=== PATIENT | female | born 1995 | race Caucasian/White ===

== ENCOUNTER → 2022-10-11 12:42 | Outpatient (CLI) | payer BC, SELFPAY ==
--- NOTE | ~2022-10-11 | US_ITS ---
EXAMINATION: US OB transvaginal DATE: 10/11/2022 13:12 INDICATION: Indeterminate dating of first trimester . TECHNIQUE: Real-time pelvic ultrasound utilizing transvaginal probe was performed. The interpreting r adiologist was not present for the study. COMPARISON: None. FINDINGS: The uterus measures 7.0 x 3.8 x 4.6 cm. There is an intrauterine gestational sac. A yolk sac and fet al pole are identified. The crown rump length measures 5 mm, which correlates with an estimated gesta tional age of 6 weeks and 1 days. heart motion is identified measuring 105 beats per minute (bp m) by M-mode Doppler. The right ovary measures 2.5 x 2.0 x 2.1 cm. The left ovary measures 3.6-2 0.2 x 1.9 cm. Mass or flui d is identified in both ovaries on color Doppler. There is no free fluid in the pelvis. IMPRESSION: 1. Single living fetus with heart rate of 105 bpm. 2. Gestational age by ultrasound of 6 weeks 1 day(s) +/- 4 day(s) with ultrasound estimated date of delivery (JANET) of 06/05/2023. Reviewed, dictated and finalized at location A. UME [employer]ER IMPRESSION: 1. Single living fetus with heart rate of 105 bpm. 2. Gestational age by ultrasound of 6 weeks 1 day(s) +/- 4 day(s) with ultraso und estimated date of delivery (JANET) of 06/05/2023.
== END ==
PROVIDERS: PCP Obstetrics & Gynecology Gynecology; Visit Provider Obstetrics & Gynecology Gynecology
DX: Z36.87 Encounter for antenatal screening for uncertain dates (principal); Z3A.01 Less than 8 weeks gestation of pregnancy
CPT/HCPCS: 76817

== ENCOUNTER → 2022-10-31 13:02 | Outpatient (CLI) | payer BC, SELFPAY ==
--- NOTE | ~2022-10-31 | US_ITS ---
Pelvic ultrasound. Clinical History: First trimester , evaluate for viability Technique: Realtime transabdominal and transvaginal scanning of the pelvis was performed. Color flow Doppler and Doppler spectral analysis were performed. Findings: The uterus is anteverted, and contains an intrauterine gestation. pole and yolk sac a re present. Godwin-rump length of 2.4 cm corresponds to an estimated gestational age of 9 weeks 0 days . heart rate is 165 bpm. No evidence for subchronic hemorrhage. Cervix closed. The right ovary measures 2.6 x 1.5 x 2.0 cm. No significant right ovarian or adnexal mass is seen. The left ovary measures 1.9 x 3.0 x 1.7 cm. No significant left ovarian or adnexal mass is seen. There is no evidence of free fluid in the cul de sac. Impression: Live intrauterine gestation, with estimated gestational age of 9 weeks 0 days. heart rate is 16 5 bpm. JANET is 06/05/2023. Reviewed, dictated and finalized at location . Impression: Live intrauterine gestation, with estimated gestational age of 9 weeks 0 days. heart rate is 165 bpm. JANET is 06/05/2023.
== END ==
PROVIDERS: PCP Obstetrics & Gynecology Gynecology; Visit Provider Obstetrics & Gynecology Gynecology
DX: O36.80X0 Pregnancy with inconclusive fetal viability, not applicable or unspecified (principal); Z3A.09 9 weeks gestation of pregnancy
CPT/HCPCS: 76801

== ENCOUNTER → 2023-01-09 14:26 | Outpatient (CLI) | payer BC, SELFPAY ==
--- NOTE | ~2023-01-09 | US_ITS ---
EXAMINATION: US OB /maternal detail DATE: 01/09/2023 14:51 INDICATION: Second trimester anatomic survey TECHNIQUE: Real-time ultrasound of the pelvis was performed. COMPARISON: None. FINDINGS: There is a single living fetus in vertex presentation. The placenta is anterior and 5.3 cm from the i nternal cervical os. The cervical length is 3.9 cm. heart rate is 138 beats per minute (bpm). F etal cardiac activity and movement are noted. The amniotic fluid index is subjectively normal. The following anatomy was identified as normal: 4 chamber heart 3 vessel cord cord insertion kidneys urinary bladder stomach spine diaphragm ventricles cisterna magna cerebellum The following biometric data were obtained: Biparietal diameter (BPD): 4.7 cm; head circumference (HC): 17.7 cm; abdominal circumference (AC): 14 .3 cm; femur length (FL): 3.1 cm. These measurements are concordant. Estimated weight is 305 g +/- 45 g, which correlates with the 83rd percentile when 06/05/2023 is used as estimated date of delivery. As single measurements, these parameters are each equal to the following estimated gestational ages w ith ranges of +/- 2 standard deviations: BPD: 20 weeks 2 days ( 18 weeks 4 days - 22 weeks 0 days). HC: 20 weeks 1 days ( 18 weeks 5 days - 21 weeks 5 days). AC: 19 weeks 5 days ( 17 weeks 4 days - 21 weeks 5 days). FL: 19 weeks 3 days ( 17 weeks 5 days - 21 weeks 2 days). estimated gestational age based solely on measurements from this exam is 19 weeks 6 days +/- 1 weeks 3 days. IMPRESSION: 1. Single living fetus in vertex presentation. 2. Estimated weight is 305 g +/- 45 g, which correlates with the 83rd percentile when 06/05/2023 is used as estimated date of delivery. Reviewed, dictated and finalized at location F. IMPRESSION: 1. Single living fetus in vertex presentation. 2. Estimated weight is 305 g +/- 45 g, which correlates with the 83rd per centile when 06/05/2023 is used as estimated date of delivery.
== END ==
PROVIDERS: PCP Advanced Practice Midwife; Visit Provider Advanced Practice Midwife
DX: Z36.9 Encounter for antenatal screening, unspecified (principal); Z3A.19 19 weeks gestation of pregnancy
CPT/HCPCS: 76805

== ENCOUNTER 2023-01-21 13:56 | Outpatient (CLI) | payer BC, SELFPAY ==
[2023-01-21 14:19] LABS: Basophils Percent Auto 0.2 % (0.2-1.2); Eosinophils Percent Auto 0.3 % (0-4.4); Hematocrit 31.7 % (37.0-47.0); Hemoglobin 10.9 g/dL (12.0-15.0); Immature Granulocyte Absolute 0.07 K/mm3 (0.00-0.031); Immature Granulocyte Percent A 0.6 % (0-0.5); Lymphocytes Absolute Auto 1.15 K/mm3 (0.9-3.2); Lymphocytes Percent Auto 10.1 % (18.3-44.2); Mean Corpuscular HGB Conc 34.4 g/dl (32-36); Mean Corpuscular Hemoglobin 31.7 pg (26-34); Mean Corpuscular Volume 92.2 fl (80-100); Mean Platelet Volume 8.6 fl (7.4-10.4); Monocytes Absolute Auto 0.6 K/mm3 (0.1-0.6); Monocytes Percent Auto 5.3 % (2.6-8.5); Neutrophils Absolute Auto 9.5 K/mm3 (1.3-6.7); Neutrophils Percent Auto 83.5 % (45.5-73.1); Platelet Count Result 235 k/mm3 (150-375); Red Blood Count 3.44 M/mm3 (4.2-5.4); Red Cell Distribution Width 13.1 % (11.5-14.5); White Blood Count 11.4 K/mm3 (4.5-10.0)
[2023-01-21 15:00] LABS: Iron 151 ug/dL (37-170)
[2023-01-21 15:09] LABS: Alanine Aminotransferase 150 U/L (6-35); Albumin Level 4.4 g/dL (3.5-5.1); Alkaline Phosphatase 52 U/L (38-126); Anion Gap 6 mmol/L (8-16); Aspartate Amino Transferase 113 U/L (14-36); Bilirubin,Total 0.2 mg/dL (0.2-1.3); Blood Urea Nitrogen 11 mg/dL (7-17); Calcium 9.1 mg/dL (8.4-10.2); Carbon Dioxide 22 mmol/L (22-30); Chloride 105 mmol/L (98-107); Estimated Glomerular Filt Rate > 60; Glucose 87 mg/dL (65-110); Potassium 4.2 mmol/L (3.4-5.0); Sodium 133 mmol/L (137-145)
[2023-01-21 15:12] LABS: Percent Iron Saturation 50 % (20-50)
== END 2023-01-21 13:57 | disposition home or self-care (01) ==
PROVIDERS: PCP Advanced Practice Midwife; Visit Provider Internal Medicine Hematology & Oncology
DX: R79.89 Other specified abnormal findings of blood chemistry (principal)
CPT/HCPCS: 36415; 80053; 82728; 83540; 83550; 85025

== ENCOUNTER 2023-01-24 08:28 | Outpatient (CLI) | payer BC, SELFPAY ==
[2023-01-24 09:07] LABS: Alanine Aminotransferase 110 U/L (6-35); Albumin Level 4.4 g/dL (3.5-5.1); Alkaline Phosphatase 53 U/L (38-126); Anion Gap 7 mmol/L (8-16); Aspartate Amino Transferase 68 U/L (14-36); Bilirubin,Total 0.3 mg/dL (0.2-1.3); Blood Urea Nitrogen 11 mg/dL (7-17); Carbon Dioxide 21 mmol/L (22-30); Chloride 108 mmol/L (98-107); Estimated Glomerular Filt Rate > 60; Glucose 70 mg/dL (65-110); Potassium 3.5 mmol/L (3.4-5.0); Sodium 136 mmol/L (137-145)
[2023-01-24 10:45] LABS: Hepatitis B Surface Antigen Negative (Negative)
[2023-01-24 10:54] LABS: HAV RESULT Negative (Negative); Hepatitis B Core IgM Result Negative (Negative)
[2023-01-24 11:02] LABS: Hepatitis C Virus Antibody Negative (Negative)
== END 2023-01-24 08:29 | disposition home or self-care (01) ==
LOC: ANHLAB 08:30
PROVIDERS: PCP Advanced Practice Midwife; Visit Provider Obstetrics & Gynecology Gynecology
DX: R74.01 Elevation of levels of liver transaminase levels (principal)
CPT/HCPCS: 36415; 80053; 80074

== ENCOUNTER 2023-02-18 09:35 | Outpatient (CLI) | payer BC, SELFPAY ==
[2023-02-18 12:48] LABS: Alanine Aminotransferase 34 U/L (6-35); Albumin Level 4.3 g/dL (3.5-5.1); Alkaline Phosphatase 57 U/L (38-126); Anion Gap 6 mmol/L (8-16); Aspartate Amino Transferase 36 U/L (14-36); Bilirubin,Total 0.2 mg/dL (0.2-1.3); Blood Urea Nitrogen 9 mg/dL (7-17); Calcium 9.2 mg/dL (8.4-10.2); Carbon Dioxide 23 mmol/L (22-30); Chloride 106 mmol/L (98-107); Estimated Glomerular Filt Rate > 60; Glucose 86 mg/dL (65-110); Potassium 4.1 mmol/L (3.4-5.0); Sodium 135 mmol/L (137-145)
== END 2023-02-18 09:36 | disposition home or self-care (01) ==
LOC: ANHLAB 09:40
PROVIDERS: PCP Advanced Practice Midwife; Visit Provider Obstetrics & Gynecology Gynecology
DX: R74.8 Abnormal levels of other serum enzymes (principal)
CPT/HCPCS: 36415; 80053

== ENCOUNTER 2023-03-17 10:29 | Outpatient (CLI) | payer OTHER, SELFPAY ==
[2023-03-17 11:21] LABS: Basophils Percent Auto 0.2 % (0.2-1.2); Eosinophils Percent Auto 0.3 % (0-4.4); Hematocrit 36.6 % (37.0-47.0); Hemoglobin 12.3 g/dL (12.0-15.0); Immature Granulocyte Absolute 0.08 K/mm3 (0.00-0.031); Immature Granulocyte Percent A 0.6 % (0-0.5); Lymphocytes Percent Auto 14.9 % (18.3-44.2); Mean Corpuscular HGB Conc 33.6 g/dl (32-36); Mean Corpuscular Hemoglobin 31.1 pg (26-34); Mean Corpuscular Volume 92.4 fl (80-100); Mean Platelet Volume 9.1 fl (7.4-10.4); Monocytes Absolute Auto 0.7 K/mm3 (0.1-0.6); Monocytes Percent Auto 5.4 % (2.6-8.5); Neutrophils Percent Auto 78.6 % (45.5-73.1); Platelet Count Result 259 k/mm3 (150-375); Red Blood Count 3.96 M/mm3 (4.2-5.4); Red Cell Distribution Width 12.1 % (11.5-14.5); White Blood Count 12.7 K/mm3 (4.5-10.0)
[2023-03-17 12:05] LABS: HIV 1/2 Ab P24 Ag Result Negative (Negative)
== END 2023-03-17 10:30 | disposition home or self-care (01) ==
LOC: ANHLAB 10:30
PROVIDERS: PCP Advanced Practice Midwife; Visit Provider Obstetrics & Gynecology
DX: Z34.90 Encounter for supervision of normal pregnancy, unspecified, unspecified trimester (principal); Z3A.00 Weeks of gestation of pregnancy not specified
CPT/HCPCS: 36415; 85025; 86703; G0432

== ENCOUNTER 2023-03-20 09:41 | Outpatient (RCR) | payer OTHER, SELFPAY ==
[2023-03-20] MEDS: RHO(D) IMMUNE GLOBULIN 300 MCG/2 ML SYRINGE IM (12:55)
== END 2023-06-16 23:59 | disposition home or self-care (01) ==
LOC: ANHOBOP 09:41
PROVIDERS: Visit Provider Obstetrics & Gynecology
DX: Z29.13 Encounter for prophylactic Rho(D) immune globulin (principal); O36.0990 Maternal care for other rhesus isoimmunization, unspecified trimester, not applicable or unspecified; Z3A.00 Weeks of gestation of pregnancy not specified
CPT/HCPCS: 36415; 85461; 86850; 86900; 86901; 90384; 96372; J2790

== ENCOUNTER 2023-05-30 11:33 | Observation (INO) | payer OTHER, SELFPAY ==
--- NOTE | 2023-06-03 11:01 | PM.OBTRLD ---
OB - Triage/Final Diagnosis Visit Information Date of evaluation: 05/30/23 Reason for evaluation: threatened labor Comments/Additional reasons for admission: I have assessed the risk for this patient, Mercy Ureña, and determined that she would benefit from observation care.
== END 2023-05-30 13:30 | disposition home or self-care (01) ==
PROVIDERS: Admitting Provider Student in an Organized Health Care Education/Training Program; Visit Provider Student in an Organized Health Care Education/Training Program
DX: O47.1 False labor at or after 37 completed weeks of gestation (principal); Z3A.38 38 weeks gestation of pregnancy
CPT/HCPCS: G0378; G0379

== ENCOUNTER 2023-06-05 17:28 | Outpatient (CLI) | payer OTHER, SELFPAY ==
[2023-06-05 18:13] LABS: Alanine Aminotransferase 73 U/L (6-35); Albumin Level 4.2 g/dL (3.5-5.1); Alkaline Phosphatase 235 U/L (38-126); Anion Gap 10 mmol/L (8-16); Aspartate Amino Transferase 61 U/L (14-36); Bilirubin,Total 0.6 mg/dL (0.2-1.3); Blood Urea Nitrogen 13 mg/dL (7-17); Calcium 9.8 mg/dL (8.4-10.2); Carbon Dioxide 19 mmol/L (22-30); Chloride 103 mmol/L (98-107); Estimated Glomerular Filt Rate > 60; Glucose 101 mg/dL (65-110); Potassium 3.6 mmol/L (3.4-5.0); Sodium 132 mmol/L (137-145)
[2023-06-12 20:39] LABS: Chenodeoxycholic Acid 8.7 umol/L (< OR = 3.9); Cholic Acid 22.7 umol/L (< OR = 2.8); Deoxycholic Acid 1.8 umol/L (< OR = 2.3); Total Bile Acids 33.2 umol/L (< OR = 8.3)
== END 2023-06-05 17:29 | disposition home or self-care (01) ==
LOC: ANHLAB 17:29
PROVIDERS: Visit Provider Obstetrics & Gynecology
DX: Z34.93 Encounter for supervision of normal pregnancy, unspecified, third trimester (principal); L29.9 Pruritus, unspecified; Z3A.00 Weeks of gestation of pregnancy not specified
CPT/HCPCS: 36415; 80053; 82542

== ENCOUNTER 2023-06-09 06:56 | Inpatient (IN) | payer OTHER, SELFPAY ==
[2023-06-09] VITALS (130 sets, daily range): BP systolic 90–176; BP diastolic 45–156; PULSE 54–272; RESP 16; TEMP 36.6–37.3; O2SAT 80–100; BMI 25.4
--- NOTE | 2023-06-09 07:38 | PM.IMHP ---
H&P: HPI History of Present Illness Date/Time: 06/09/23 07:38 Chief Complaint: leaking Narrative: Mercy is a 28yo @ 40.1wks who presented to L&D w/ complaints of leakage of clear fluid since 0500. She is having contractions. No vb. Feeling good movement. She has had regular care. Her is complicated by: - Hemochromatosis with h/o mildly elevated liver enzymes - Rh neg s/p rhogam - Cholestasis w/u pending Review of Systems Constitutional: Constitutional: Denies chills, Denies fever(s) and Denies headache(s) Eyes: Eyes: Denies change in vision ENT: Denies headache(s) Cardiovascular: Cardiovascular: Denies chest pain and Denies dyspnea Respiratory: Respiratory: Denies dyspnea Genitourinary: Genitourinary: Denies abnormal vaginal bleeding and Reports vaginal discharge Integumentary/Breasts: Skin/Breast: Reports pruritus Neurologic: Denies headache(s) Psychiatric: Psychiatric: Denies anxiety and Denies depression [facility] Past Medical History Medical History Hemochromatosis current DX Miscarriage Family History Family History Mother Hemochromatosis Thyroid disease Grandparent Hemochromatosis Father Hemochromatosis Social History Social History Smoking status: Never smoker Alcohol intake: never Substance use: never Substance use type: does not use Lack of Transportation: No Lack of Food: Never True Current Housing: I Have Housing Concerned About Future Housing: No Difficulty Paying Gas/Electric Bills: No Difficulty Paying for Meds: No Currently Unemployed: No Education: Bachelor's Degree Difficulty w/ Childcare or Family Care: No Living arrangements: with family Occupation/Education: occupation Additional occupation/education comments: self empolyed Gender identity (if verbalized by the patient): Female Sexual Orientation (if Verbalized by the Patient): Straight or Heterosexual Spiritual care concerns: No Meds Home Medications and Allergies Home Medications Medication Instructions Recorded Confirmed Type cholecalciferol (vitamin D3) 10 10 mcg PO DAILY 02/25/23 06/04/23 History mcg (400 unit) tablet vits 75-iron 28 mg-folic 1 pkg PO DAILY 02/25/23 06/04/23 History acid 800 mcg-omega-3 oral combo pack (One A Day Women's DHA) Allergies Allergy/AdvReac Type Severity Reaction Status Date / Time Penicillins Allergy Severe Hives Verified 06/04/23 09:49 shellfish derived Allergy Intermediate Hives Verified 06/04/23 09:49 Exam Const: General: cooperative, healthy appearing, no acute distress and obese Nutritional Appearance: obese Orientation/consciousness: patient oriented x3 Resp: Effort & Inspection: normal respiratory effort Cardio: Rate: regular rate GI: GI Palp: No abdominal tenderness : Other: FHT's: 140's/ mod damien/ + accels/ no decels - cat 1 TOCO: ctxs q3-4min Cervix: 3.5/80/-2 Membranes: SROM, clear 0500 (ROM+ positive) Presentation: cephalic Skin: General skin exam: normal color Neuro: General: patient oriented x3 Extrem: General: normal to inspection Psych: Appearance: grossly normal Affect: normal affect Attitude: cooperative Assessment and Plan Assessment and plan (1) SROM (spontaneous rupture of membranes): Status: Acute (2) : Qualifiers: Weeks of gestation: 25 weeks Qualified Code(s): Z3A.25 - 25 weeks gestation of Code(s): Z34.90 - Encounter for supervision of normal , unspecified, unspecified trimester Status: Acute (3) Elevated liver enzymes: Code(s): R74.8 - Abnormal levels of other serum enzymes Status: Acute Plan - Admit to L&D due to spontaneous rupture of membranes - Pt desires as natural d
--- NOTE | 2023-06-09 07:46 | WPDHPUPDATE1 ---
History and Physical Update Update Date/Time: 06/09/23 07:46 History and Physical has been reviewed, including an updated exam of the patient. There are NO changes in the patient's condition. Risks, benefits, and alternatives have been discussed and questions answered. Patient agrees to proceed with procedure.
[2023-06-09 08:58] LABS: Basophils Percent Auto 0.3 % (0.2-1.2); Eosinophils Percent Auto 0.1 % (0-4.4); Hemoglobin 12.8 g/dL (12.0-15.0); Immature Granulocyte Absolute 0.06 K/mm3 (0.00-0.031); Immature Granulocyte Percent A 0.6 % (0-0.5); Lymphocytes Absolute Auto 1.99 K/mm3 (0.9-3.2); Lymphocytes Percent Auto 20.4 % (18.3-44.2); Mean Corpuscular HGB Conc 34.6 g/dl (32-36); Mean Corpuscular Hemoglobin 30.9 pg (26-34); Mean Corpuscular Volume 89.4 fl (80-100); Mean Platelet Volume 10.3 fl (7.4-10.4); Monocytes Absolute Auto 0.5 K/mm3 (0.1-0.6); Monocytes Percent Auto 4.9 % (2.6-8.5); Neutrophils Absolute Auto 7.2 K/mm3 (1.3-6.7); Neutrophils Percent Auto 73.7 % (45.5-73.1); Platelet Count Result 251 k/mm3 (150-375); Red Blood Count 4.14 M/mm3 (4.2-5.4); Red Cell Distribution Width 12.8 % (11.5-14.5); White Blood Count 9.8 K/mm3 (4.5-10.0)
--- NOTE | 2023-06-09 09:05 | LDADM ---
This patient, Mercy Ureña, was admitted to Labor/Delivery/Recovery 104 on 06/09/23 at 06:56. Plans for labor, pain management and were discussed with patient. Patient/family oriented to hospital policies and general routines including ID bracelet, bed and alarms, visiting hours, pain management, procedures, bathroom and other care routines, personal items, smoking policy, room service/diet and guest tray routines, security routines, and visiting hours. Patient/Family are encouraged to report perceived risks to care and to ask questions if they do not understand what they are told or what they should do. See OBIX for further documentation.
[2023-06-09 09:09] LABS: Alanine Aminotransferase 70 U/L (6-35); Alkaline Phosphatase 264 U/L (38-126); Anion Gap 9 mmol/L (8-16); Aspartate Amino Transferase 62 U/L (14-36); Bilirubin,Total 0.6 mg/dL (0.2-1.3); Blood Urea Nitrogen 9 mg/dL (7-17); Calcium 9.1 mg/dL (8.4-10.2); Carbon Dioxide 17 mmol/L (22-30); Chloride 107 mmol/L (98-107); Estimated Glomerular Filt Rate > 60; Glucose 84 mg/dL (65-110); Potassium 3.6 mmol/L (3.4-5.0); Sodium 133 mmol/L (137-145)
[2023-06-09 09:10] LABS: INR 0.9; Prothrombin Time 12.1 Seconds (11.1-14.7)
[2023-06-09 09:11] LABS: Partial Thromboplastin Time 26.7 SECONDS (22.3-36.8)
[2023-06-09 09:12] LABS: Fibrinogen 512 mg/dl (215-510)
[2023-06-09] MEDS: LACTATED RINGERS 1,000 ML 125 ML IV CONT (10:11)
[2023-06-09] MEDS: OXYTOCIN 30 UNITS/NS 500 ML 30 UNITS/500 ML BAG IV CONT (10:12)
[2023-06-09] MEDS: CALCIUM CARBONATE (TUMS) 500 MG (200 MG ELEMENTAL) PO (10:51)
--- NOTE | 2023-06-09 12:00 | PM.OBPNLAB ---
Pain Control Date/time seen: 06/09/23 12:00 Pain control: tolerating well Pelvic Exam Dilation (cm): 5 Effacement (%): 90 station: -2 Amniotic membrane status: Ruptured (SROM, 0500-- fore bag just ruptured clear 1200) Contractions Monitor mode: External Contraction frequency: 3 Status status: Category l Assessment and Plan Pitocin rate (mU/min): 4 Plan: continuous present management
--- NOTE | 2023-06-09 14:52 | PM.OBPNLAB ---
Pain Control Date/time seen: 06/09/23 14:52 Pain control: tolerating well Pelvic Exam Dilation (cm): 7 Effacement (%): 90 station: -1 Amniotic membrane status: Ruptured (SROM, 0500-- fore bag just ruptured clear 1200) Contractions Monitor mode: External Contraction frequency: 2 (tripling) Status status: Category l Assessment and Plan Pitocin rate (mU/min): 4 Assessment: active labor Plan: continuous present management
[2023-06-09] MEDS: PHENYLEPHRINE 1,000 MCG/10 ML SYRINGE 100 MCG IV PUSH ×2 (18:44→19:55)
[2023-06-09] MEDS: SODIUM CHLORIDE 0.9% IV 300 ML 600 ML I-UTERINE (19:00)
--- NOTE | 2023-06-09 21:44 | PM.OBPNLAB ---
Pain Control Date/time seen: 06/09/23 21:44 Pain control: epidural Pelvic Exam Dilation (cm): 8 (.5) Effacement (%): 90 station: -1 Amniotic membrane status: Ruptured (SROM, 0500-- fore bag just ruptured clear 1200) Contractions Monitor mode: External Contraction frequency: 4 Status status: Category ll Assessment and Plan Plan: Comments: has had recurrent late decelerations after epidural placement; resolved but now has arrest of active phase and inability to augment due to minimal variability and occasional late decels - counseled on risks and benefits of and questions answered
[2023-06-09] MEDS: AZITHROMYCIN 500 MG/NS 250 ML 500 MG/250 ML BAG 250 MG IVPB (21:49)
[2023-06-09] MEDS: ceFAZolin 2 GM/D5W 50 ML 2 GM/50 ML BAG IVPB (22:00)
--- NOTE | 2023-06-09 22:43 | W.PM.OBCSD ---
OB - Delivery Note Procedure Delivery date: 06/09/23 Pre-op diagnosis: Arrest of Dilation and Decelerations Post-op Diagnosis: Same Induction method: None Delivery augmentation: Pitocin Delivery monitor: External FHT and Internal FHT Prior to decision for section, ACOG/SM labor guidelines were considered and discussed with the patient and staff. Decision made to proceed with the section.: Yes Procedure Performed: Primary Primary branch: low cervical, transverse Surgeon: Inez Canada MD Anesthesia type: Epidural Description of Procedure/Findings: Male infant, ROT/OP, clear fluid, no nuchal/body cord noted. Normal fallopian tubes and ovaries bilaterally. Estimated Blood Loss: 325 Pathology: Yes (placenta) Complications: No immediate complications Condition: Stable Disposition: PACU [place] [facility] Date of : 06/09/23 Time of : 22:08 Weeks of gestation at delivery: 40 (.1) gender: Male Weight (pounds): 8 Weight (ounces): 9 presentation: vertex position: Right Occiput Transverse (/slightly posterior) Placenta delivery description: Expressed Cord Vessel Description: 3 Vessels and Delayed Cord Clamping score one minute: 8 score five minutes: 9 Narrative: She was counseled on all risks and benefits in detail. She was taken to the operating room where epidural was found to be adequate. She was then prepped and draped in the normal sterile fashion. She received 2g Ancef and 500mg of Azithromycin and a time out was performed. A Pfannenstiel incision was made in the skin and carried down to the underlying fascia. The fascia was nicked on either side of the midline and the fascial incision was extended laterally and superiorly using curved Wagner scissors. The fascia was then elevated using Gregorio clamps and the underlying rectus muscles were dissected off the fascia, superiorly and inferiorly. The rectus muscles were then in the midline and the peritoneum was entered bluntly. Once adequate exposure was obtained, a Mobius self retractor was placed within the abdomen. A low transverse incision was made on the lower uterine segment and clear fluid was noted. The occiput was easily brought to the hysterotomy and the head was easily delivered. The shoulders and body then followed without complications. The had spontaneous cry and the mouth and nose were bulb suctioned. The cord clamping was delayed but then doubly clamped and cut and the was handed off to the awaiting pediatric nurse. A segment of the cord was collected for cord gases. The remaining cord blood was collected for typing. With pitocin infusing, the placenta delivered with gentle traction on the cord without complications. The uterus was exteriorized and then cleared out of all clots and debris using a clean, moist lap. The hysterotomy was then repaired in a running, interlocking fashion using 0 Vicryl. The uterus was placed intraabdominally and a second layer imbricating suture was then made using 0 Vicryl. The hysterotomy was found to be hemostatic and good uterine tone was noted. The bilateral adnexa were examined and found to be normal. The pelvis was cleared of all clots and fluid. The Mobius retractor was removed from the abdomen. The peritoneum, muscle, and fascia were examined and made hemostatic with bovie cautery. The fascia was then repaired using a 0 Vicryl suture in a running fashion. The subcutaneous tissue was then irrigated and made hemostatic with bovie cautery. The skin was then closed using 4-0 Monocryl in a running subcuticular fashion. Sponge, lap, needle and instrument counts were correct at the end of the procedure x2. The patient tolerated the procedure well and was taken to recovery in a stable condition. [facility] Delivery Billing Delivery Delivery: Delivery Charge
[2023-06-09] MEDS: OXYTOCIN 30 UNITS/NS 500 ML 30 UNITS/500 ML BAG 125 UNITS IV CONT (22:50)
[2023-06-10] VITALS (21 sets, daily range): BP systolic 104–148; BP diastolic 53–79; PULSE 76–126; RESP 16–18; TEMP 36.4–37.1; O2SAT 96–100
--- NOTE | 2023-06-10 01:12 | OBPPTRN ---
Patient transferred to post room #282 via stretcher. Support person present. Oriented to unit, room, information board, rooming in, admission packet and security measures. Patient verbalizes understanding.
[2023-06-10] MEDS: DEXTROSE 5%/0.45% SOD CHL 1,000 ML 125 ML IV CONT (03:19)
[2023-06-10] MEDS: KETOROLAC 30 MG/ML VIAL (*BKC) IV PUSH ×3 (04:40→17:06)
--- NOTE | 2023-06-10 06:10 | PM.OBPNVD ---
OB - PN: Subj Subjective Date/time seen: 06/10/23 07:10 Narrative: POD#1 Mercy reports doing well today. Her bleed is normal (per nursing). Her pain is controlled. She has tolerated CLD and crackers overnight; no N/V. She has the floyd in place. She has not passed gas or ambulated yet. She denies any issues with her incision. She is breast feeding. OB - PN: Obj Data Labs 06/09/23 08:49 06/09/23 08:49 Labs: Laboratory Results - last 24 hr 06/09/23 08:49 WBC 9.8 RBC 4.14 L Hgb 12.8 Hct 37.0 MCV 89.4 MCH 30.9 MCHC 34.6 RDW 12.8 Plt Count 251 MPV 10.3 Immature Gran % (Auto) 0.6 H Neut % (Auto) 73.7 H Lymph % (Auto) 20.4 Henderson % (Auto) 4.9 Eos % (Auto) 0.1 Baso % (Auto) 0.3 Lymph # (Auto) 1.99 Henderson # (Auto) 0.5 Eos # (Auto) 0.0 Baso # (Auto) 0.0 Abs Immat Gran (auto) 0.06 H Absolute Neuts (auto) 7.2 H Absolute Nucleated RBC 0.0 Nucleated RBC % 0.0 PT 12.1 INR 0.9 APTT 26.7 Fibrinogen 512 H Sodium 133 L Potassium 3.6 Chloride 107 Carbon Dioxide 17 L Anion Gap 9 BUN 9 Creatinine 0.90 Estim Creat Clear Calc Not Reportable Estimated GFR > 60 Glucose 84 Calcium 9.1 Total Bilirubin 0.6 AST 62 H ALT 70 H Alkaline Phosphatase 264 H Total Protein 8.0 Albumin 4.0 Blood Type O Negative Antibody Screen Positive Antibody Identification Passive Due to RH Imm Glob Antigen Identification Cancelled IVÁN, IgG Interpret Not Performed IVÁN, Poly Interpret Negative IVÁN, Complement Interp Not Performed OB - PN A/P Assessment and Plan (1) S/P primary low transverse : Code(s): Z98.891 - History of uterine scar from previous surgery Status: Acute (2) Arrested active phase of labor: Code(s): O62.1 - Secondary uterine inertia Status: Acute Plan day: 1 Plan: routine care Time Spent With Patient Time: Total time spent is greater than 50% in coordination of care (as documented) at patient's floor/unit and/or counseling patient: Review of Systems Constitutional: Constitutional: Denies chills, Denies fever(s) and Denies headache(s) Eyes: Eyes: Denies change in vision ENT: Denies dizziness and Denies headache(s) Cardiovascular: Cardiovascular: Denies chest pain, Denies palpitations and Denies dyspnea Respiratory: Respiratory: Denies cough and Denies dyspnea Gastrointestinal: Gastrointestinal: Denies nausea and Denies vomiting Genitourinary: Comments: normal bleeding Neurologic: Denies dizziness and Denies headache(s) Endocrine: Endocrine: Denies palpitations Exam Const: General: cooperative, comfortable and no acute distress Orientation/consciousness: patient oriented x3 Resp: Effort & Inspection: normal respiratory effort Auscultation: clear to auscultation bilaterally Cardio: Rate: regular rate GI: Inspection: non-distended and incision (covered with clean dressing) GI Palp: Yes abdominal tenderness (appropriate) and Yes Soft to palpation Auscultation: normal bowel sounds : Other: fundus firm Skin: General skin exam: normal color Neuro: General: patient oriented x3 Extrem: General: normal to inspection Psych: Appearance: grossly normal Affect: normal affect Attitude: cooperative
--- NOTE | 2023-06-10 08:19 | WPDANLDPN2 ---
Anes-Prog Note L&D Date/Time: 06/10/23 08:19 Comfortable throughout: section Neuraxial method: epidural Epidural/Spinal procedure site: clean & non-tender Neuro status: Neuro function grossly intact. Cardiovascular status: normal Respiratory status: normal Airway patency: baseline Mental status: baseline Post-Op hydration status: normal Vital Signs: Last Vital Signs Temp 36.8 C 06/10/23 05:00 Pulse 76 06/10/23 05:00 Resp 16 06/10/23 05:00 BP 116/62 06/10/23 05:00 Pulse Ox 96 06/10/23 05:00 O2 Del Method Room Air 06/10/23 07:10 Pain score (VAS): 0 I/O: Intake & Output 06/09/23 06/10/23 06/10/23 23:59 07:59 15:59 Output Total 2375 Balance -2375 Post-procedural complaints: none Patient feedback: Patient satisfied with anesthetic care.
--- NOTE | 2023-06-10 08:20 | WPDANLDPN2 ---
Anes-Prog Note L&D Date/Time: 06/10/23 08:20 Comfortable throughout: section Neuraxial method: epidural Epidural/Spinal procedure site: clean & non-tender Neuro status: Neuro function grossly intact. Cardiovascular status: normal Respiratory status: normal Airway patency: baseline Mental status: baseline Post-Op hydration status: normal Vital Signs: Last Vital Signs Temp 36.8 C 06/10/23 05:00 Pulse 76 06/10/23 05:00 Resp 16 06/10/23 05:00 BP 116/62 06/10/23 05:00 Pulse Ox 96 06/10/23 05:00 O2 Del Method Room Air 06/10/23 07:10 Pain score (VAS): 0 I/O: Intake & Output 06/09/23 06/10/23 06/10/23 23:59 07:59 15:59 Output Total 2375 Balance -2375 Post-procedural complaints: none Patient feedback: Patient satisfied with anesthetic care. Addendum Text Addendum Addendum: Neuraxial method misdocumented as epidural. Correct neuraxial method is spinal.
--- NOTE | 2023-06-10 08:22 | WPDANLDNPN2 ---
Anes-Prog Note L&D-Neuraxial Date/Time: 06/10/23 08:22 Neuraxial medications: intrathecal PF morphine Opiod-related complaints: none Patient feedback: Patient satisfied with post-operative pain management.
--- NOTE | 2023-06-10 08:23 | WPDANLDPN2 ---
Anes-Prog Note L&D Date/Time: 06/10/23 08:23 Comfortable throughout: section Neuraxial method: epidural Epidural/Spinal procedure site: clean & non-tender Neuro status: Neuro function grossly intact. Cardiovascular status: normal Respiratory status: normal Airway patency: baseline Mental status: baseline Post-Op hydration status: normal Vital Signs: Last Vital Signs Temp 36.8 C 06/10/23 05:00 Pulse 76 06/10/23 05:00 Resp 16 06/10/23 05:00 BP 116/62 06/10/23 05:00 Pulse Ox 96 06/10/23 05:00 O2 Del Method Room Air 06/10/23 07:10 Pain score (VAS): 0 I/O: Intake & Output 06/09/23 06/10/23 06/10/23 23:59 07:59 15:59 Output Total 2375 Balance -2375 Post-procedural complaints: none Patient feedback: Patient satisfied with anesthetic care.
--- NOTE | 2023-06-10 09:00 | PC.NURSE ---
Breast pump provided due to baby taken to level 2 nursery for sepsis workup. Instructions given on cleaning, care, usage, that there should be no pain, pumping schedule for milk production, collection, and storage of human milk. Parents are encouraged to record pumping schedule on the [feeding sheet/pumping log]. Patient was assessed for correct placement, flange size, to pump for comfort and nipple stretching/stimulation for adequate milk production every 3 hours (8 times in 24 hours) 1-2 times at night. Mother voiced understanding of the education shared along with mom and baby guide for additional resource information.
[2023-06-10] MEDS: MULTIVIT/MIN/PREN/FOL AC/IRON TABLET 1 TAB PO (10:02)
[2023-06-10] MEDS: DOCUSATE SODIUM 100 MG CAPSULE PO ×2 (10:03→17:08)
[2023-06-10] MEDS: CHOLECALCIFEROL 400 UNITS TABLET (VIT D) PO (10:03)
--- NOTE | 2023-06-10 10:35 | PC.NURSE ---
Mother taken downstairs to Level 2 nursery to see baby per wheelchair. Mother will remain seated in wheelchair next to warmer bed. Mother will let nursery nurse, Abdiaziz Villagran RN, when she is ready to come back upstairs. FOB is with mother.
--- NOTE | 2023-06-10 11:31 | PC.NURSE ---
Pt brought back up to the floor to room 282 per wheelchair, FOB with her. Pt assisted back into bed, head of bed elevated with call light within reach.
[2023-06-10 12:20] LABS: Basophils Absolute Auto 0.1 K/mm3 (0.0-0.1); Basophils Percent Auto 0.2 % (0.2-1.2); Hematocrit 27.4 % (37.0-47.0); Hemoglobin 9.2 g/dL (12.0-15.0); Immature Granulocyte Absolute 0.26 K/mm3 (0.00-0.031); Lymphocytes Absolute Auto 2.73 K/mm3 (0.9-3.2); Lymphocytes Percent Auto 10.9 % (18.3-44.2); Mean Corpuscular HGB Conc 33.6 g/dl (32-36); Mean Corpuscular Hemoglobin 31.3 pg (26-34); Mean Corpuscular Volume 93.2 fl (80-100); Mean Platelet Volume 10.3 fl (7.4-10.4); Monocytes Absolute Auto 1.2 K/mm3 (0.1-0.6); Monocytes Percent Auto 4.6 % (2.6-8.5); Neutrophils Absolute Auto 20.9 K/mm3 (1.3-6.7); Neutrophils Percent Auto 83.3 % (45.5-73.1); Platelet Count Result 200 k/mm3 (150-375); Red Blood Count 2.94 M/mm3 (4.2-5.4); White Blood Count 25.1 K/mm3 (4.5-10.0)
[2023-06-10 12:29] LABS: Alanine Aminotransferase 52 U/L (6-35); Albumin Level 2.5 g/dL (3.5-5.1); Alkaline Phosphatase 140 U/L (38-126); Anion Gap 2 mmol/L (8-16); Aspartate Amino Transferase 69 U/L (14-36); Bilirubin,Total 0.5 mg/dL (0.2-1.3); Blood Urea Nitrogen 8 mg/dL (7-17); Calcium 8.1 mg/dL (8.4-10.2); Carbon Dioxide 22 mmol/L (22-30); Chloride 106 mmol/L (98-107); Estimated CRCL calculation 53 ml/min; Estimated Glomerular Filt Rate 58; Glucose 85 mg/dL (65-110); Potassium 3.9 mmol/L (3.4-5.0); Sodium 130 mmol/L (137-145)
--- NOTE | 2023-06-10 14:26 | PC.NURSE ---
Dr. Canada notified of lab results and that baby was transferred. Dr. Canada put in orders for pt to have a repeat CBC in the am.
[2023-06-10 14:31] LABS: Rapid Plasma Reagin Non-Reactive (NonReactive)
[2023-06-10] MEDS: SIMETHICONE 80 MG TAB.CHEW PO (14:42)
[2023-06-10] MEDS: HYDROcodone/acetaminophen (*CRX) 5-325 MG TABLET 1 TAB PO (17:07)
[2023-06-10] MEDS: POLYSACCHARIDE IRON COMPLEX 150 MG CAPSULE PO (17:08)
[2023-06-11] MEDS: IBUPROFEN 600 MG TABLET PO ×2 (03:30→09:37)
[2023-06-11] MEDS: HYDROcodone/acetaminophen (*CRX) 10-325 MG TABLET 1 TAB PO (03:30)
[2023-06-11 06:21] LABS: Basophils Percent Auto 0.2 % (0.2-1.2); Eosinophils Percent Auto 0.1 % (0-4.4); Hematocrit 26.3 % (37.0-47.0); Hemoglobin 8.8 g/dL (12.0-15.0); Immature Granulocyte Absolute 0.21 K/mm3 (0.00-0.031); Immature Granulocyte Percent A 1.2 % (0-0.5); Lymphocytes Absolute Auto 2.23 K/mm3 (0.9-3.2); Lymphocytes Percent Auto 12.7 % (18.3-44.2); Mean Corpuscular HGB Conc 33.5 g/dl (32-36); Mean Corpuscular Volume 92.6 fl (80-100); Monocytes Absolute Auto 0.6 K/mm3 (0.1-0.6); Monocytes Percent Auto 3.6 % (2.6-8.5); Neutrophils Absolute Auto 14.4 K/mm3 (1.3-6.7); Neutrophils Percent Auto 82.2 % (45.5-73.1); Platelet Count Result 202 k/mm3 (150-375); Red Blood Count 2.84 M/mm3 (4.2-5.4); White Blood Count 17.5 K/mm3 (4.5-10.0)
--- NOTE | 2023-06-11 07:14 | PM.OBPNVD ---
OB - PN: Subj Subjective Date/time seen: 06/11/23 07:14 Narrative: POD#2 Mer[facility] reports doing well today. 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 Her pain is controlled. She is tolerating regular diet, voiding, passing gas, and ambulating without issues. She denies any issues with her incision. She is pumping because her son was transferred due to bradycardia/hypoxia/sepsis w/u. OB - PN: Obj Data Labs 06/11/23 06:08 06/10/23 12:15 Labs: Laboratory Results - last 24 hr 06/09/23 06/10/23 08:49 12:15 WBC 25.1 H RBC 2.94 L Hgb 9.2 L D Hct 27.4 L MCV 93.2 MCH 31.3 MCHC 33.6 RDW 13.0 Plt Count 200 MPV 10.3 Immature Gran % (Auto) 1.0 H Neut % (Auto) 83.3 H Lymph % (Auto) 10.9 L [place] % (Auto) 4.6 Eos % (Auto) 0.0 Baso % (Auto) 0.2 Lymph # (Auto) 2.73 [place] # (Auto) 1.2 H Eos # (Auto) 0.0 Baso # (Auto) 0.1 Abs Immat Gran (auto) 0.26 H Absolute Neuts (auto) 20.9 H Absolute Nucleated RBC 0.0 Nucleated RBC % 0.0 Sodium 130 L Potassium 3.9 Chloride 106 Carbon Dioxide 22 Anion Gap 2 L BUN 8 Creatinine 1.10 H Estim Creat Clear Calc 53 Estimated GFR 58 L Glucose 85 Calcium 8.1 L Total Bilirubin 0.5 AST 69 H ALT 52 H Alkaline Phosphatase 140 H Total Protein 5.0 L Albumin 2.5 L RPR Non-reactive OB - PN A/P Assessment and Plan (1) S/P primary low transverse : Code(s): Z98.891 - History of uterine scar from previous surgery Status: Acute Plan day: 2 Plan: routine care and discharge home Comments: - Pelvic rest; take meds as prescribed - Incision care/no heavy lifting - ER return precautions: fever, n/v/abd pain, bleeding, HTN Time Spent With Patient Time: Total time spent is greater than 50% in coordination of care (as documented) at patient's floor/unit and/or counseling patient: Review of Systems Constitutional: Constitutional: Denies chills, Denies fever(s) and Denies headache(s) Eyes: Eyes: Denies change in vision ENT: Denies dizziness and Denies headache(s) Cardiovascular: Cardiovascular: Denies chest pain, Denies palpitations and Denies dyspnea Respiratory: Respiratory: Denies cough and Denies dyspnea Gastrointestinal: Gastrointestinal: Denies nausea and Denies vomiting Genitourinary: Comments: normal bleeding Neurologic: Denies dizziness and Denies headache(s) Endocrine: Endocrine: Denies palpitations Exam Const: General: cooperative, comfortable and no acute distress Orientation/consciousness: patient oriented x3 Resp: Effort & Inspection: normal respiratory effort Auscultation: clear to auscultation bilaterally Cardio: Rate: regular rate GI: Inspection: non-distended and incision (covered with clean dressing) GI Palp: Yes abdominal tenderness (appropriate) and Yes Soft to palpation Auscultation: normal bowel sounds : Other: fundus firm Skin: General skin exam: normal color Neuro: General: patient oriented x3 Extrem: General: normal to inspection Psych: Appearance: grossly normal Affect: normal affect Attitude: cooperative
[2023-06-11 07:15] VITALS: BP 112/70; PULSE 101; RESP 16; TEMP 36.1; O2SAT 99
--- NOTE | 2023-06-11 07:29 | PM.OBDSVD ---
DS: Admitting Diagnosis Discharge Date 06/11/23 Admitting Diagnosis SROM DS: Discharge Diagnosis Discharge Diagnosis (1) Arrested active phase of labor: Code(s): O62.1 - Secondary uterine inertia Status: Acute (2) S/P primary low transverse : Code(s): Z98.891 - History of uterine scar from previous surgery Status: Acute OB - DS: Summary OB Procedures : Ultrasound OB Procedures Intrapartum: low cervical, transverse OB Procedures: : None Peripartum Data Infant Delivery Method: Section Procedures: Procedures Operation Date: 06/09/23 22:00 Actual Procedure Side Surgeon p Section Inez Canada MD complications: none 1: Gender: Male Disposition of : NICU Status at Discharge Functional status at discharge: independent ambulation Overall status at discharge: patient is back to baseline Time Spent with Patient Time attestation: Total time spent providing and/or coordinating discharge services: Exam Const: General: cooperative, healthy appearing, comfortable and no acute distress Orientation/consciousness: patient oriented x3 Resp: Effort & Inspection: normal respiratory effort Auscultation: clear to auscultation bilaterally Cardio: Rate: regular rate GI: Inspection: non-distended and incision (covered with clean dressing) GI Palp: No abdominal tenderness and Yes Soft to palpation Auscultation: normal bowel sounds : Other: fundus firm Skin: General skin exam: normal color Neuro: General: patient oriented x3 Extrem: General: normal to inspection Psych: Appearance: grossly normal Affect: normal affect Attitude: cooperative DS: Data Data Completed and Pending Pending studies at discharge: Pending at discharge 06/10/23 02:57 Surgical [PTH] Routine Labs on day of discharge: Labs from last 24 hours 06/11/23 06/10/23 06/09/23 06:08 12:15 08:49 WBC 17.5 H 25.1 H RBC 2.84 L 2.94 L Hgb 8.8 L 9.2 L D Hct 26.3 L 27.4 L MCV 92.6 93.2 MCH 31.0 31.3 MCHC 33.5 33.6 RDW 13.0 13.0 Plt Count 202 200 MPV 10.0 10.3 Immature Gran % (Auto) 1.2 H 1.0 H Neut % (Auto) 82.2 H 83.3 H Lymph % (Auto) 12.7 L 10.9 L [place] % (Auto) 3.6 4.6 Eos % (Auto) 0.1 0.0 Baso % (Auto) 0.2 0.2 Lymph # (Auto) 2.23 2.73 [place] # (Auto) 0.6 1.2 H Eos # (Auto) 0.0 0.0 Baso # (Auto) 0.0 0.1 Abs Immat Gran (auto) 0.21 H 0.26 H Absolute Neuts (auto) 14.4 H 20.9 H Absolute Nucleated RBC 0.0 0.0 Nucleated RBC % 0.0 0.0 Sodium 130 L Potassium 3.9 Chloride 106 Carbon Dioxide 22 Anion Gap 2 L BUN 8 Creatinine 1.10 H Estim Creat Clear Calc 53 Estimated GFR 58 L Glucose 85 Calcium 8.1 L Total Bilirubin 0.5 AST 69 H ALT 52 H Alkaline Phosphatase 140 H Total Protein 5.0 L Albumin 2.5 L RPR Non-reactive Discharge Plan Discharge Attending physician on discharge: Inez Canada Discharging Clinician: Inez Canada Anticipated Discharge Date/Time: 06/11/23 10:00 Patient Disposition: Home, Self-Care Activity: may shower, no straining, may drive after 2 weeks and pelvic rest Diet: regular Discharge Instructions: Remove dressing on 06/15/23. Patient Instructions: (DC) Stand Alone Forms: General Discharge Information Follow-up/Referrals: Inez Canada MD [Physician] - 4 Weeks Discharge Medications: New acetaminophen 500 mg tablet 1,000 mg PO TID Qty: 60 0RF docusate sodium [Colace] 100 mg capsule 100 mg PO BID Qty: 120 0RF ferrous sulfate 325 mg (65 mg iron) tablet 325 mg PO DAILY Qty: 60 0RF ibuprofen 800 mg tablet 800 mg PO TID Qty: 30 0RF hydrocodone-acetaminophen 5-325 mg tablet 1 tablet PO Q3H PRN (Reason: pain) Qty: 24 0RF Continued One A Day Women's DHA 28 mg iron-
[2023-06-11] MEDS: HYDROcodone/acetaminophen (*CRX) 5-325 MG TABLET 1 TAB PO ×2 (09:37→13:09)
[2023-06-11] MEDS: SIMETHICONE 80 MG TAB.CHEW PO (09:37)
[2023-06-11] MEDS: DOCUSATE SODIUM 100 MG CAPSULE PO (09:38)
[2023-06-11] MEDS: CHOLECALCIFEROL 400 UNITS TABLET (VIT D) PO (09:38)
[2023-06-11] MEDS: POLYSACCHARIDE IRON COMPLEX 150 MG CAPSULE PO (09:38)
[2023-06-11] MEDS: MULTIVIT/MIN/PREN/FOL AC/IRON TABLET 1 TAB PO (09:38)
--- NOTE | 2023-06-11 10:03 | PC.NURSE ---
On 06/11/23, the student, Charleen Rosenberg, provided care and completed [facility] documentation on this patient. I have reviewed the student's documentation and agree with the findings.
[2023-06-13 13:26] VITALS: BP 128/71; PULSE 92; RESP 18; TEMP 36.9; O2SAT 100
== END 2023-06-11 13:17 | disposition home or self-care (01) | DRG 786 ==
LOC: ANHLDR 07:26 → ANHOB2 06-10 01:48
PROVIDERS: Admitting Provider Obstetrics & Gynecology; Visit Provider Obstetrics & Gynecology
PROC: 10D00Z1 Extraction of Products of Conception, Low, Open Approach (ICD-10-PCS; CPT 59514; principal; 2023-06-09 22:00)
DX: O26.643 Intrahepatic cholestasis of pregnancy, third trimester (principal); K83.1 Obstruction of bile duct; O99.12 Other diseases of the blood and blood-forming organs and certain disorders involving the immune mechanism complicating childbirth; O26.62 Liver and biliary tract disorders in childbirth; O76 Abnormality in fetal heart rate and rhythm complicating labor and delivery; Z3A.40 40 weeks gestation of pregnancy; Z37.0 Single live birth; O62.1 Secondary uterine inertia; R94.5 Abnormal results of liver function studies; Z67.91 Unspecified blood type, Rh negative
CPT/HCPCS: 36415; 80053; 84112; 85025; 85384; 85610; 85730; 86592; 86850; 86880; 86900; 86901; 86902; A9270; J0456; J0690; J1885; J2371; J2590; J2795; J7030; J7120

== ENCOUNTER 2024-07-08 10:49 | Outpatient (CLI) | payer OTHER, SELFPAY ==
--- NOTE | ~2024-07-08 | US_ITS ---
EXAMINATION: US OB <= 14 weeks fetus DATE: 07/08/2024 11:15 INDICATION: . Uncertain dates. TECHNIQUE: Real-time transabdominal pelvic ultrasound was performed. COMPARISON: None. FINDINGS: The uterus measures 14.2 x 8.8 x 11.6 cm. There is an intrauterine gestational sac. The placenta is a nterior. The crown rump length measures 8.7 cm. The biparietal diameter is 3.0 cm. The femur le ngth is 1.4 cm. These measurements correlate with correlate with an estimated gestational age of 14 w eeks and 5 day(s) (+/-) 1 week(s) and 0 day(s). heart motion is identified measuring 149 beats per minute (bpm) by M-mode Doppler. The ovaries are not visualized. There is no free fluid in the pel vis. IMPRESSION: 1. Single living intrauterine gestation with estimated date of delivery of 01/01/2025. Reviewed, dictated and finalized at location A. PANNER IMPRESSION: 1. Single living intrauterine gestation with estimated date of delivery of 12/04.
== END 2024-07-08 10:50 | disposition home or self-care (01) ==
LOC: MICIMG 10:50
PROVIDERS: PCP Obstetrics & Gynecology; Visit Provider Obstetrics & Gynecology
DX: Z36.9 Encounter for antenatal screening, unspecified (principal); Z3A.00 Weeks of gestation of pregnancy not specified
CPT/HCPCS: 76801

== ENCOUNTER 2024-11-15 08:14 | Outpatient (CLI) | payer OTHER, SELFPAY ==
--- NOTE | ~2024-11-15 | US_ITS ---
Corrected Report Wrong Visit # 11/15/2024 J This report was recreated on 11/15/2024. Original report was signed by Yanna Valenzuela on 11/15/2024 10:10 CDT . EXAMINATION: US OB follow up DATE: 11/15/2024 10:01 CDT INDICATION: Follow-up COMPARISON: 07/08/2024 TECHNIQUE: Real-time transabdominal obstetric ultrasound. FINDINGS: 3 para 2 Estimated date of delivery by last ultrasound is 01/02/2025 A single intrauterine gestation is identified in breech presentation with placenta anterior. cardiac activity is identified at a rate of 155 bpm. Amniotic fluid amount is subjectively normal with the SHIN measuring. 17.4 cm. The following biometric data were obtained: Biparietal diameter (BPD): 8.6 cm; head circumference (HC): 32 cm; abdominal circumference (AC): 29 cm; FYI femur length (FL): 6.3 cm. These measurements are concordant. Estimated weight is 2251 g +/- 338 g, which correlates with the 58th percentile when 12/25/2024 is used as estimated date of delivery. As single measurements, these parameters are each equal to the following estimated gestational ages: BPD: 34 weeks 4 days. HC: 36 weeks 0 days. AC: 33 weeks 5 days. FL: 32 weeks 4 days. estimated gestational age based solely on measurements from this exam is 34 weeks 2 days +/- 2 weeks 3 days. Estimated date of delivery by ultrasound is 12/25/2024 IMPRESSION: Single intrauterine gestation with an approximate gestational age of 34 weeks and 2 days, with cardiac activity identified. Reviewed, dictated and finalized at location A. MTDD IMPRESSION: Single intrauterine gestation with an approximate gestational age of 34 weeks a nd 2 days, with cardiac activity identified.
== END 2024-11-15 08:15 | disposition home or self-care (01) ==
DX: Z36.9 Encounter for antenatal screening, unspecified (principal); Z3A.34 34 weeks gestation of pregnancy
CPT/HCPCS: 76816